=== PATIENT | female | born 1955 | race Caucasian/White ===

== ENCOUNTER → 2018-05-10 15:48 | Outpatient (CLI) | payer OTHER, SELFPAY ==
[2018-05-10 16:58] LABS: Absolute Lymphocyte Count 1.47 X10^3/ul (0.83-4.51); Absolute Neutrophil Count 3.6 X10^3/uL (2.0-7.7); Basophil# 0.02 X10^3/uL; Basophil% 0.4 % (0-1); Eosinophil# 0.15 X10^3/uL; Eosinophils% 2.7 % (0-5); Hematocrit 39.5 % (37-47); Hemoglobin 13.3 g/dl (12.0-15.0); Lymphocyte # 1.47 X10^3/ul (4.0); Lymphocyte % 26.2 % (19-41); Mean Corp Hgb Conc 33.7 g/gl (32-36); Mean Corpuscular Hgb 30.4 pg (27.0-32.0); Mean Corpuscular Volume 90.2 fL (81-99); Monocyte# 0.41 X10^3/uL; Monocyte% 7.3 % (0-10); Neutrophil # 3.56 X10^3/uL (2.7-7.7); Neutrophil % 63.4 % (47-70); Platelet Count 225 K/mm3 (150-450); RBC Distribution Width CV 12.9 % (11.6-14.6); RBC Distribution Width SD 42.3 fl (35.1-43.9); Red Blood Count 4.38 M/mm3 (4.2-5.4); White Blood Count 5.6 K/mm3 (4.4-11.0)
[2018-05-10 17:05] LABS: POSITIVE COUNT NO; POSITIVE DIFFERENTIAL NO; POSITIVE MORPHOLOGY NO
[2018-05-10 17:27] LABS: Erythrocyte Sedimentation Rate 6 mm/hr (0-30)
[2018-05-10 17:33] LABS: Hemoglobin A1c 5.9 % (4.2-6.3)
[2018-05-10 17:36] LABS: Vitamin D,25 Hydroxy 29.9 ng/mL (29.95-100.01)
[2018-05-10 17:43] LABS: ALB/GLOB Ratio 1.3 RATIO (0.9-2.4); AST(SGOT) 10 U/L (15-37); Alanine Aminotransfer ALT/SGPT 23 U/L (13-56); Albumin, Serum 3.7 g/dL (3.2-5.0); Alkaline Phosphatase 118 U/L (45-117); Anion Gap 10 (5-15); BUN 15 mg/dL (7-18); BUN/Creat Ratio 23.7 RATIO (10-20); CRP < 2.90 mg/L (0.0-3.0); Calcium,Total 8.8 mg/dL (8.5-10.1); Chloride 106 mmol/L (98-107); Creatinine, Serum 0.63 mg/dL (0.55-1.02); EST Glomerular Filtration Rate 101 mL/min (>60); Est Glom Filt Rate - Afr Amer 123 mL/min (>60); Globulin 2.8 g/dL (2.2-4.2); Glucose 100 mg/dL (74-106); Protein, Total 6.5 g/dL (6.4-8.2); Rheumatoid Factor < 10.0 IU/mL (<15); Sodium Level 141 mmol/L (136-145); T4 Free Direct 0.96 ng/dL (0.76-1.46); Thyroid Stim Hormone (TSH) 2.56 uIU/mL (0.358-3.74)
[2018-05-13 13:10] LABS: Anti-Centromere B Ab <0.2 AI (0.0-0.9); Anti-Chromatin <0.2 AI (0.0-0.9); Anti-Jo <0.2 AI (0.0-0.9); Anti-Scleroderma-70 AB <0.2 AI (0.0-0.9); Anti-ribosomal P Antibodies <0.2 AI (0.0-0.9); RNP Ab <0.2 AI (0.0-0.9); SJOGREN'S Anti-SS-A test < 0.2 AI (0.0-0.9); SJOGREN'S Anti-SS-B test < 0.2 AI (0.0-0.9); Smith Ab <0.2 AI (0.0-0.9); Smith/RNP Ab <0.2 AI (0.0-0.9)
[2018-05-13 13:37] LABS: Anti-dsDNA Ab 1 IU/mL (0-9)
[2018-05-13 13:41] LABS: CCP IgG Antibodies 6 units (0-19)
== END ==
PROVIDERS: Family Provider Family Medicine; PCP Family Medicine; Visit Provider Family Medicine
DX: R73.01 Impaired fasting glucose (principal); E03.9 Hypothyroidism, unspecified; M06.4 Inflammatory polyarthropathy; G25.0 Essential tremor
CPT/HCPCS: 36415; 80053; 82306; 83036; 84439; 84443; 85025; 85652; 86038; 86140; 86200; 86225; 86235; 86431

== ENCOUNTER → 2018-06-14 14:19 | Outpatient (CLI) | payer OTHER, SELFPAY ==
--- NOTE | 2018-06-14 14:22 | BI_ITS ---
MAMMOGRAPHY - BILATERAL SCREENING REASON FOR EXAM: Female, 63 years old. Routine annual screening examination. PERTINENT HISTORY: Sister with breast cancer. Mother with breast cancer. Grandmother with breast cancer. TECHNIQUE: Digital bilateral breast yessy (3D mammographic acquisition) in the CC and MLO projections. 2-D mediolateral oblique (MLO) and craniocaudad (CC) views of both breasts were obtained. CAD: Full Field Digital Mammography with Computer Added Detection was performed. COMPARISON: Comparison is made with prior study dated January 26, 2017 and January 30, 2016. FINDINGS: Breast Composition: There are scattered areas of fibroglandular density. There are no dominant masses or suspicious calcifications. Stable 6.5 mm x 6.5 mm well-defined nodule in the mid outer portion of the right breast. This is unchanged. Prior ultrasound dated February 03, 2017 demonstrated this to be a simple cyst. No other significant abnormalities are identified. There has been no significant change since the prior study. BI/SCREENING MAMM (CAD), BILAT IMPRESSION: Stable bilateral screening mammogram. Yearly follow-up mammogram recommended. (A) ASSESSMENT CATEGORY: BIRADS Category 2: Benign. A letter regarding these results will be sent to the patient by the facility within 30 days. Approximately 10% of breast cancers are not detected by mammography. A normal mammogram should not delay biopsy of a clinically suspicious abnormality. [id number] Electronically Signed: Tashi Sousa MD at 15:52 EST Tel [phone], Service support ,
== END ==
PROVIDERS: Family Provider Family Medicine; PCP Family Medicine; Referring Provider Family Medicine; Visit Provider Family Medicine
DX: Z12.31 Encounter for screening mammogram for malignant neoplasm of breast (principal)
CPT/HCPCS: 77063; 77067

== ENCOUNTER → 2019-06-21 15:43 | Outpatient (CLI) | payer OTHER, SELFPAY ==
--- NOTE | 2019-06-21 15:46 | BI_ITS ---
MAMMOGRAPHY - BILATERAL SCREENING REASON FOR EXAM: Female, 64 years old. Routine annual screening examination. PERTINENT HISTORY: Sister with breast cancer. Mother with breast cancer. Grandmother with breast cancer. TECHNIQUE: Digital bilateral breast williams (3D mammographic acquisition) in the CC and MLO projections. 2-D mediolateral oblique (MLO) and craniocaudad (CC) views of both breasts were obtained. CAD: Full Field Digital Mammography with Computer Added Detection was performed. COMPARISON: Comparison is made with prior study dated June 14, 2018 and January 26, 2017 FINDINGS: Breast Composition: There are scattered areas of fibroglandular density. There are no dominant masses or suspicious calcifications. There is a 4.7 mm x 5.8 mm mm well-defined nodule in the mid outer portion of the right breast. This has decreased in size as compared to prior study. Prior sonogram of the breast demonstrated this to be a cyst. Stable benign-appearing small bilateral axillary lymph nodes. No other significant abnormalities are identified. There has been no significant change since the prior study. BI/SCREEN MAMM (CAD) W/WILLIAMS BILAT IMPRESSION: Stable bilateral screening mammogram. Yearly follow-up mammogram recommended. (A) ASSESSMENT CATEGORY: BIRADS Category 2: Benign. A letter regarding these results will be sent to the patient by the facility within 30 days. Approximately 10% of breast cancers are not detected by mammography. A normal mammogram should not delay biopsy of a clinically suspicious abnormality. [id number] Electronically Signed: Tashi Sousa, at 8:15 EST , Service support ,
== END ==
PROVIDERS: Family Provider Family Medicine; PCP Family Medicine; Referring Provider Family Medicine; Visit Provider Family Medicine
DX: Z12.31 Encounter for screening mammogram for malignant neoplasm of breast (principal)
CPT/HCPCS: 77063; 77067

== ENCOUNTER 2020-08-20 07:51 | Inpatient (IN) | payer OTHER, SELFPAY ==
[2020-08-20] VITALS (10 sets, daily range): BP systolic 115–142; BP diastolic 65–90; PULSE 70–102; RESP 11–18; TEMP 36.6–37.2; O2SAT 86–99; BMI 35.0; BMI 32.9
--- NOTE | 2020-08-20 08:03 | RAD_ITS ---
STUDY: X-RAY CHEST REASON FOR EXAM: Female, 65 years old. Rapid positive covid this am at urgent care. general weakness, diarrhea x1 week, body aches, cough, sob with exertion. sx x1 week TECHNIQUE: Single AP portable view of the chest. COMPARISON: None. FINDINGS: EKG electrodes are seen. There is evidence of a focal infiltrate in the posterior medial segment of the left lower lobe. Mild increased markings are seen in the peripheral aspect of the right upper lobe. There is no demonstrated pleural abnormality. Normal size heart. Normal mediastinum and michael. Normal visualized pulmonary arteries. There is atherosclerotic calcification of the aortic arch with tortuosity. Normal visualized thoracic spine. Normal visualized ribs, clavicles, and shoulders. There is no demonstrated abnormality of the visualized soft tissue structures of the upper abdomen. RAD/Chest 1 View (Portable) IMPRESSION: Focal left lower lobe infiltrate as well as a faint infiltrate in the peripheral lateral aspect of the right upper lobe adjacent to the right minor fissure. Electronically Signed: Tashi Sousa MD at 8:55 EST , Service support ,
[2020-08-20 08:07] LABS: Bacteria 0 SEEN /hpf (None Seen); Mucous, Urine 0 SEEN /hpf (<or=2+); White Blood Cells 0 SEEN /hpf (0-5)
--- NOTE | 2020-08-20 08:07 | ED.VIS.GEN ---
History of Present Illness Chief Complaint: General Illness Informant: Patient Onset: Days Context: Gradual Onset Timing: Continuous Current Severity: Moderate Maximum Severity: Moderate Narrative: Patient is a 65-year-old female with medical history significant for hypertension diabetes who presents to the emergency department with generalized malaise. Patient states for about the past week, she has been having chills, myalgias, and scant cough. She states she is also had diarrhea and has been feeling generally weak. She went to urgent care this morning. She had a positive Covid test. She does admit to some mild shortness of breath with exertion. She denies chest pain. She denies orthopnea. She has had some lack of appetite. She has no history of immunosuppression. She has no history of underlying lung disease. Prior similar symptoms: No Recent Illness/Hospitalization: No Past Medical History - Allergies and Home Meds Allergies/Adverse Reactions: Allergies codeine Allergy (Unknown, Verified 08/20/20 07:54) [facility] Primary Care Physician: Kade Baca MD [NON-STAFF] - Prior records reviewed: Yes Past Medical History: - - Hypertension, diabetes Surgical History: noncontributory Review of Systems General: Reports: Chills, Malaise. Denies: Fever, Sweats Eyes: Denies: Visual changes - bilaterally, Diplopia ENT: Denies: Rhinorrhea, Sore throat Cardiovascular: Denies: Chest pain, Palpitations Respiratory: Reports: Cough. Denies: Dyspnea, Dyspnea on exertion Gastrointestinal: Reports: Nausea, Diarrhea. Denies: Abdominal pain, Vomiting, Melena, Hematochezia Genitourinary: Denies: Dysuria, Hematuria, Frequency Musculoskeletal: Reports: Myalgias. Denies: Back pain, Extremity Pain Skin: Denies: Rash, Wounds Neurological: Denies: Headache, Weakness, Numbness Physical Exam Vital Signs/Narrative: Vital Signs Temp Pulse Resp BP Pulse Ox 08/20/20 07:51 98.9 F 102 H 16 142/90 H 96 Inital Vital Signs reviewed: Yes General: Well nourished, Well developed, No Acute Distress Head: Normocephalic, Atraumatic Eyes: Perrl, EOMI ENT: Moist mucous membranes, No rhinorrhea Neck: Supple, Nontender Cardiovascular: Regular rate, Regular rhythm, No murmurs Respiratory: No distress, CTA bilaterally, Chest nontender Abdomen: Soft, Nontender, Nondistended, Normal bowel sounds Back: Nontender, Normal Inspection Extremities: Nontender, No edema Skin: Normal color, No rash Neurological: Alert, Oriented x3, Cranial nerves II-XII grossly intact, Normal Strength, Normal Sensation Psychological: Normal affect, Normal Mood Diagnostic/Tx/Re-eval Clinical Impression(s) from Imaging Studies Chest X-Ray 08/20/20 08:03 IMPRESSION: Focal left lower lobe infiltrate as well as a faint infiltrate in the peripheral lateral aspect of the right upper lobe adjacent to the right minor fissure. Electronically Signed: Tashi Sousa MD at 8:55 EST , Service support , Abnormal Lab Results 08/20/20 08/20/20 08/20/20 08:00 08:20 08:20 WBC 3.7 L RBC 4.49 Hgb 13.5 Hct 41.1 MCV 91.5 MCH 30.1 MCHC 32.8 RDW Std Deviation 41.0 RDW Coeff of Karly 12.2 Plt Count 177 MPV 9.7 Immature Gran % (Auto) 0.500 Neut % (Auto) 70.6 H Lymph % (Auto) 19.7 [place] % (Auto) 8.6 Eos % (Auto) 0.3 Baso % (Auto) 0.3 Absolute Neuts (auto) 2.6 Absolute Lymphs (auto) 0.73 L Nucleated RBC % 0 Sodium 138 Potassium 4.8 Chloride 107 Carbon Dioxide 26.0 Anion Gap 5 BUN 11 Creatinine 0.76 Estim Creat Clear Calc 59.15 Est GFR (MDRD) Af Amer 98 Est GFR (MDRD) Non-Af 81 BUN/Creatinine Ratio 14.5 Glucose 114 H Calcium 8.5 Total Bilirubin 0.40 AST 12 L ALT 18 Alkaline Phosphatase 113 Total Protein 6.7 Albumin 3.7 Globulin 3.0 Albumin/Globulin Ratio 1.2 Urine Color Yellow Urine Clarity Sl. Cloudy Urine pH 6.0 Ur Specific [place] 1.015 Urine Protein Negative Urine Glucose (UA) Normal Urine Ketones Negative Urine Occult Blood 10 H Urine Nitrite Negative Urine Bilirubin Negative Urine Urobilinogen Normal Ur Leukocyte Esterase Negative Urine RBC 0-5 SEEN Urine WBC 0 SEEN Ur Squamous Epith Cells 0-5 SEEN Urine Bacteria 0 SEEN Urine Mucus 0 SEEN - Rhythm Strip Rhythm Strip: Sinus Rhythm Rate: 80 Ectopy: None - Medical Decision Making Abnormal Lab Results 08/20/20 08/20/20 08/20/20 08:00 08:20 08:20 WBC 3.7 L RBC 4.49 Hgb 13.5 Hct 41.1 MCV 91.5 MCH 30.1 MCHC 32.8 RDW Std Deviation 41.0 RDW Coeff of Karly 12.2 Plt Count 177 MPV 9.7 Immature Gran % (Auto) 0.500 Neut % (Auto) 70.6 H Lymph % (Auto) 19.7 [place] % (Auto) 8.6 Eos % (Auto) 0.3 Baso % (Auto) 0.3 Absolute Neuts (auto) 2.6 Absolute Lymphs (auto) 0.73 L Nucleated RBC % 0 Sodium 138 Potassium 4.8 Chloride 107 Carbon Dioxide 26.0 Anion Gap 5 BUN 11 Creatinine 0.76 Estim Creat Clear Calc 59.15 Est GFR (MDRD) Af Amer 98 Est GFR (MDRD) Non-Af 81 BUN/Creatinine Ratio 14.5 Glucose 114 H Calcium 8.5 Total Bilirubin 0.40 AST 12 L ALT 18 Alkaline Phosphatase 113 Total Protein 6.7 Albumin 3.7 Globulin 3.0 Albumin/Globulin Ratio 1.2 Urine Color Yellow Urine Clarity Sl. Cloudy Urine pH 6.0 Ur Specific [place] 1.015 Urine Protein Negative Urine Glucose (UA) Normal Urine Ketones Negative Urine Occult Blood 10 H Urine Nitrite Negative Urine Bilirubin Negative Urine Urobilinogen Normal Ur Leukocyte Esterase Negative Urine RBC 0-5 SEEN Urine WBC 0 SEEN Ur Squamous Epith Cells 0-5 SEEN Urine Bacteria 0 SEEN Urine Mucus 0 SEEN The patient presents Covid positive for generalized fatigue and tachycardia. She is had a scant cough. On arrival, the patient's oxygen saturation was 96% on room air. Metabolic work-up was pursued. She does not have significant evidence of dehydration. Her chest x-ray is consistent with Covid. Patient was given gentle fluids and Tylenol. However, in the room, she began to get more hypoxic. At one point, without exertion she was 84% on room air. Given the patient's significant oxygen requirement, I do feel that she would benefit from admission. The patient was discussed with the hospitalist. Impression 1. COVID-19 2. Hypoxia ED Disposition - Plan for ED Patient: Referrals: Kade Baca MD [NON-STAFF] -
[2020-08-20 08:16] LABS: Color, Urine Yellow (Yellow); Glucose, Dipstick Normal (Normal); Ketone-Dipstick Negative (Negative); Leukocyte Esterase-Dipstick Negative /ul (Negative); Nitrite-Dipstick Negative (Negative); Occult Blood-Urine 10 /ul (Negative); Protein-Dipstick Negative (Negative); Specific Gravity, Urine 1.015 (1.002-1.030); Urine Bilirubin Dipstick Negative (Negative); Urine Clarity Sl. Cloudy (Clear); Urine Urobilinogen Normal (Normal)
[2020-08-20 08:26] LABS: Red Blood Cells-Urine 0-5 SEEN /hpf (0-5); Squamous Epithelial Cells - UA 0-5 SEEN /hpf (5-10)
[2020-08-20] MEDS: Ondansetron 4 MG/2 ML Vial IV (08:33)
[2020-08-20] MEDS: Acetaminophen 500 MG Tablet 1000 MG PO (08:33)
[2020-08-20 08:47] LABS: Absolute Lymphocyte Count 0.73 X10^3/uL (0.83-4.51); Absolute Neutrophil Count 2.6 X10^3/uL (2.0-7.7); Basophil# 0.01 X10^3/uL; Basophil% 0.3 % (0-1); Eosinophil# 0.01 X10^3/uL; Eosinophils% 0.3 % (0-5); Hematocrit 41.1 % (37-47); Hemoglobin 13.5 g/dL (12.0-15.0); Lymphocyte # 0.73 X10^3/ul (4.0); Lymphocyte % 19.7 % (19-41); Mean Corp Hgb Conc 32.8 g/dL (32-36); Mean Corpuscular Hgb 30.1 pg (27.0-32.0); Mean Corpuscular Volume 91.5 fL (81-99); Mean Platelet Vol. 9.7 fl (6.2-12.0); Monocyte# 0.32 X10^3/uL; Monocyte% 8.6 % (0-10); NRBC Flagged by Analyzer 0 % (0-5); Neutrophil # 2.61 X10^3/uL (2.7-7.7); Neutrophil % 70.6 % (47-70); Platelet Count 177 K/mm3 (150-450); RBC Distribution Width CV 12.2 % (11.6-14.6); Red Blood Count 4.49 M/mm3 (4.2-5.4); White Blood Count 3.7 K/mm3 (4.4-11.0)
[2020-08-20 08:54] LABS: ALB/GLOB Ratio 1.2 RATIO (0.9-2.4); AST(SGOT) 12 U/L (15-37); Alanine Aminotransfer ALT/SGPT 18 U/L (13-56); Albumin, Serum 3.7 g/dL (3.2-5.0); Alkaline Phosphatase 113 U/L (45-117); Anion Gap 5 (5-15); BUN 11 mg/dL (7-18); BUN/Creat Ratio 14.5 RATIO (10-20); Calcium,Total 8.5 mg/dL (8.5-10.1); Chloride 107 mmol/L (98-107); Creatinine, Serum 0.76 mg/dL (0.55-1.02); EST Glomerular Filtration Rate 81 mL/min (>60); Est Glom Filt Rate - Afr Amer 98 mL/min (>60); Estimated Creatinine Clearance 59.15 ml/min; Glucose 114 mg/dL (74-106); Potassium 4.8 mmol/L (3.5-5.1); Protein, Total 6.7 g/dL (6.4-8.2); Sodium Level 138 mmol/L (136-145)
[2020-08-20] MEDS: dexAMETHasone 4 MG/ML Vial 6 MG IV (09:23)
[2020-08-20] MEDS: 0.9% Normal Saline 1,000 ML 125 ML IV (09:23)
--- NOTE | 2020-08-20 12:00 | PCM.HP.STD ---
Problem List (1) Hypoxia Status: Acute (2) Pneumonia due to COVID-19 virus Status: Acute (3) Depression Status: Chronic (4) Hypothyroidism Status: Chronic (5) Hypertension Status: Chronic (6) Type 2 diabetes mellitus Status: Chronic History of Present Illness Date of Admission: 08/20/20 Chief Complaint: Body aches and pains, cough. The patient is a 65 year old F with past medical history as mentioned above was referred to the emergency room from the urgent care because she tested positive for COVID-19 antigen after she complained of body aches and pains, cough and shortness of breath. Her symptoms started 1 week ago after her came back home and he started coughing, she started coughing after him by 1 day, initially was mild dry cough, has been continuous, started to have body aches and pains all over the next couple of days and then she started having shortness of breath. She reported exertional shortness of breath mainly on moderate exertion, relieved better with rest, continued to have cough with no sputum as well as body aches, malaise and weakness. She denied fever or chills. She denied chest pain, palpitation, dizziness or lightheadedness. In the emergency department, she was afebrile, slightly tachycardic, initial pulse ox was 96% on room air and then her pulse ox dropped down to 86% on room air. Her routine blood work was remarkable for mild leukopenia and lymphopenia, otherwise unremarkable. LFT was normal. Urinalysis showed no acute infection. Chest x-ray revealed focal left lower lobe as well as right upper lobe infiltrate. Reportedly, COVID-19 antigen was positive at the urgent care. She is being admitted for acute bilateral COVID-19 pneumonia with hypoxia. Past Medical History Past Medical History (Chronic Problems): Chronic Problems (Last Reviewed 08/20/20 @ 07:05 by Tashia Vasquez) Depression (Chronic) Hypothyroidism (Chronic) Hypertension (Chronic) Type 2 diabetes mellitus (Chronic) Allergies codeine Allergy (Unknown, Verified 08/20/20 11:50) makes me real sick Home Medications: Ambulatory Orders Medication Instructions Recorded Duloxetine Hcl [Cymbalta] PO DAILY 08/20/20 Levothyroxine [Synthroid] 100 mcg PO DAILY 08/20/20 Lisinopril/Hydrochlorothiazide 20 mg PO DAILY 08/20/20 [Lisinopril-Hctz 20-12.5 mg Tab] Zolpidem Tartrate [Ambien] PO QHS 08/20/20 Surgical History: tonsillectomy, - - Foot surgery, tubal ligation. Psychiatric History: Depression [employer] History: No pertinent [employer] history Lives: Spouse/ Significant Other Smoking Status: Former smoker Alcohol: Occasional Drugs: None - *Family History Maternal History Items: No pertinent history Paternal History Items: No pertinent history Review of Systems Constitutional: Reports: Malaise, Weakness. Denies: Anorexia, Chills, Fever Eyes: Denies: Blurred vision, Conjunctivae Inflammation, Double vision, Redness HEENT: Denies: Difficulty Hearing, Ear Pain, Eye Pain, Nasal Congestion, Sore Throat Cardiovascular: Denies: Chest Pain, Chest Pressure, Chest Tightness, Edema, Palpitations, Syncope Respiratory: Reports: Cough, Shortness of breath upon exertion. Denies: Pleuritic Pain, Sputum production, Wheezing Gastrointestinal: Denies: Abdominal Pain, Constipation, Diarrhea, Nausea, Vomiting Genitourinary: Denies: Dysuria, Frequency Musculoskeletal: Reports: Muscle pain. Denies: Arm Pain, Back Pain, Foot Pain Skin: Denies: Dryness, Rash Neurological: Denies: Balance problems, Double vision, Change in Speech, Headaches, Incoordination Psychiatric: Reports: Depression. Denies: Anxiety Endocrine: Denies: Change in Body Habitus, Polydipsia, Polyuria VTE Information - Inpt Only VTE Present on Admission: No VTE Mechan Device Prophylaxis: None VTE Pharm Prophylaxis ordered?: Yes Patient Problems: Active and Suspected Problems (Last Reviewed 08/20/20 @ 07:05 by Tashia Vasquez) Hypoxia (Acute) Pneumonia due to COVID-19 virus (Acute) - Physical Exam Vitals/I&O's: Vital Signs Temp Pulse Resp BP Pulse Ox 98.8 F 84 18 120/74 96 08/20/20 11:09 08/20/20 11:09 08/20/20 11:09 08/20/20 11:09 08/20/20 11:09 Oxygen Flow Rate (L/min) 2 Oxygen Delivery Method Nasal Cannula Weight: 191 lb 9.307 oz Body Mass Index (BMI) 35.0 General: Alert, Oriented x3, Cooperative, No apparent distress, - - Anxious, tearful. HEENT: Atraumatic, PERRLA, EOMI, Normocephalic Oral: Moist Mucosa, No Gingival or Mucosal Lesions/ Ulcerations Neck: Supple, No JVD, Negative Carotid Bruits, Trachea Midline, Thyroid Normal Size and Texture Lungs: Clear to auscultation, Normal air movement, No rhonchi, No wheeze, No rales, Diminished Cardiovascular: Regular rate, Regular Rhythm, Normal S1, Normal S2, PMI Normal Abdomen: Bowel Sounds Present, Soft, Non Tender, Non-Distended, No Hepato-splenomegaly Extremities: No clubbing, No cyanosis, No edema Skin: No rashes, No breakdown Lymphatic: No Cervical, Supraclavicular, or Inguinal Adenopathy Neurological: Cranial nerves II-XII grossly intact, Motor Exam 5/5 strength throughout Psych/Mental Status: Normal Affect, Appropriate, Alert and oriented to time, place, person, mood and affect Laboratory Results 08/20/20 08:00: Urine Color Yellow, Urine Clarity Sl. Cloudy, Urine pH 6.0, Ur Specific [place] 1.015, Urine Protein Negative, Urine Glucose (UA) Normal, Urine Ketones Negative, Urine Occult Blood 10 H, Urine Nitrite Negative, Urine Bilirubin Negative, Urine Urobilinogen Normal, Ur Leukocyte Esterase Negative, Urine RBC 0-5 SEEN, Urine WBC 0 SEEN, Ur Squamous Epith Cells 0-5 SEEN, Urine Bacteria 0 SEEN, Urine Mucus 0 SEEN 08/20/20 08:20: WBC 3.7 L, RBC 4.49, Hgb 13.5, Hct 41.1, MCV 91.5, MCH 30.1, MCHC 32.8, RDW Std Deviation 41.0, RDW Coeff of Karly 12.2, Plt Count 177, MPV 9.7, Immature Gran % (Auto) 0.500, Neut % (Auto) 70.6 H, Lymph % (Auto) 19.7, [place] % (Auto) 8.6, Eos % (Auto) 0.3, Baso % (Auto) 0.3, Absolute Neuts (auto) 2.6, Absolute Lymphs (auto) 0.73 L, Nucleated RBC % 0 08/20/20 08:20: Sodium 138, Potassium 4.8, Chloride 107, Carbon Dioxide 26.0, Anion Gap 5, BUN 11, Creatinine 0.76, Estim Creat Clear Calc 59.15, Est GFR (MDRD) Af Amer 98, Est GFR (MDRD) Non-Af 81, BUN/Creatinine Ratio 14.5, Glucose 114 H, Calcium 8.5, Total Bilirubin 0.40, AST 12 L, ALT 18, Alkaline Phosphatase 113, Total Protein 6.7, Albumin 3.7, Globulin 3.0, Albumin/Globulin Ratio 1.2 Clinical Impression(s) from Imaging Studies Chest X-Ray 08/20/20 08:03 IMPRESSION: Focal left lower lobe infiltrate as well as a faint infiltrate in the peripheral lateral aspect of the right upper lobe adjacent to the right minor fissure. Electronically Signed: Tashi Sousa MD at 8:55 EST , Service support , Current Medications Acetaminophen (Acetaminophen 325 Mg Tablet) 650 mg PO Q6H PRN PRN PRN Reason: Pain Score 1-10/Temp > 100.7 F Dexamethasone Sodium Phosphate (Dexamethasone 10 Mg/Ml Vial) 6 mg IV DAILY [facility] Enoxaparin Sodium (Enoxaparin 30 Mg/0.3 Ml Syringe) 30 mg SC BID ANNETTE Hydrochlorothiazide (Hydrochlorothiazide 12.5mg) 12.5 mg PO DAILY ANNETTE Remdesivir 200 mg/ Sodium (Chloride) 250 mls @ 125 mls/hr IV X1 ONE Stop: 08/20/20 14:59 Remdesivir 100 mg/ Sodium (Chloride) 250 mls @ 125 mls/hr IV DAILY ANNETTE Stop: 08/24/20 11:59 Sodium Chloride () 250 mls @ 15 mls/hr IV .[id number] PRN PRN Reason: Saline Flush Levothyroxine Sodium (Levothyroxine 100 Mcg Tablet) 100 mcg PO DAILY ANNETTE Lisinopril (Lisinopril 20 Mg Tablet) 20 mg PO DAILY ANNETTE Ondansetron HCl (Ondansetron 4 Mg/2 Ml Vial) 4 mg IV Q8H PRN PRN PRN Reason: NAUSEA/VOMITING Senna/Docusate Sodium (Senna/Docusate Sodium 1 Tablet) 2 tablet PO BID PRN PRN PRN Reason: Constipation Sodium Chloride (0.9% Saline Lock 10 Ml Syringe) 10 - 40 ml IV UD PRN PRN Reason: SALINE FLUSH Assessment/Plan All Active Problems (Last Reviewed 08/20/20 @ 07:05 by Tashia Vasquez) Hypoxia (Acute) Pneumonia due to COVID-19 virus (Acute) This is a 65 years old female patient was referred from the urgent care to ED because she was tested positive for COVID-19 antigen after she complained of 1 week history of cough, malaise, body aches and shortness of breath and she was found to have bilateral infiltrates on chest x-ray, being admitted for acute bilateral COVID-19 pneumonia with hypoxia. #1 acute bilateral COVID-19 pneumonia/hypoxia: Chest x-ray reviewed. Patient tested positive for COVID-19 antigen as outpatient. Currently, she is on 2 L of oxygen, other vital signs are stable. Plan: Admit to [facility] COVID-19 floor, isolation precautions, check BMP, CPK, D-dimer, lactic acid, procalcitonin, troponin, PT and INR, start IV Decadron and IV remdesivir, EKG, oxygen by nasal cannula, infectious disease consult, repeat CBC and CMP tomorrow morning, PT OT evaluation and treatment. #2 hypertension: Blood pressure stable, continue lisinopril/HCTZ. #3 hypothyroidism: Stable, continue levothyroxine. #4 type 2 diabetes mellitus: Currently, she is not on any treatment. She used to be on Metformin. Plan: Accu-Cheks, sliding scale, ADA diet. #5 depression: Stable, continue Cymbalta. #6 DVT prophylaxis: Subcu Lovenox twice daily. This note was generated with ReplySend dictation software. It may contain incorrect words, spelling, and punctuation that were not noted in checking the note before signing. Inpatient E&M: [id number] Init Hosp L3
--- NOTE | 2020-08-20 12:10 | EKG12_ITS ---
Test Reason : ADMITT Blood Pressure : / mmHG Vent. Rate : 077 BPM Atrial Rate : 077 BPM P-R Int : 168 ms QRS Dur : 080 ms QT Int : 398 ms P-R-T Axes : 020 -28 014 degrees QTc Int : 450 ms Normal sinus rhythm Normal ECG Confirmed by SHAHRAM BRADY, IMANI ([id number]), legal editor MARIANO MONTAGUE ([id number]) on 08/23/2020 9:55:09 AM Referred By: SAMINA Confirmed By:IMANI OMALLEY MD
[2020-08-20 12:32] LABS: Prothrombin Time (Protime)PT. 12.7 SECONDS (11.7-14.9)
[2020-08-20 12:34] LABS: D-Dimer Quantitative (DVT/PE) 0.41 FEU/ug/m (0.27-0.49)
[2020-08-20 12:41] LABS: BNP,B-Type NATRIURETIC PEPTIDE 14.8 pg/mL (0-100)
[2020-08-20 12:46] LABS: CPK Total, Creatine Kinase 44 U/L (26-192)
[2020-08-20 12:48] LABS: Lactic Acid 1.1 mmol/L (0.4-1.9)
[2020-08-20 12:50] LABS: Procalcitonin 0.05 ng/mL (0.00-0.09)
--- NOTE | 2020-08-20 12:57 | PCS.PANDOC ---
PANDEMIC DOCUMENTATION INITIATED: Date: 08/20/2020 Time: 1129
[2020-08-20] MEDS: Enoxaparin 30 MG/0.3 ML Syringe SC ×2 (14:25→22:35)
--- NOTE | 2020-08-20 14:29 | CASEMGMT ---
RN CM Assessment Note Introduced role of CM to patient. Patient was admitted today and is not feeling well. She requested CM call back tomorrow. Assessment deferred for today. Ida NYEN RN ACM
[2020-08-20 16:56] LABS: Bedside Glucose 178 mg/dL (70-110)
[2020-08-20] MEDS: Insulin Lispro 100 UNIT/ML INSULN.PEN SC (16:57)
[2020-08-20] MEDS: Acetaminophen 325 MG Tablet 650 MG PO (22:35)
[2020-08-20] MEDS: Zolpidem Tartrate 5 MG Tablet PO (22:36)
[2020-08-21] VITALS (14 sets, daily range): BP systolic 122–157; BP diastolic 63–102; PULSE 54–87; RESP 14–18; TEMP 36.2–36.4; O2SAT 94–98
[2020-08-21 00:46] LABS: Bedside Glucose 121 mg/dL (70-110)
[2020-08-21 05:19] LABS: Absolute Lymphocyte Count 0.95 X10^3/uL (0.83-4.51); Absolute Neutrophil Count 1.2 X10^3/uL (2.0-7.7); Basophil# 0.01 X10^3/uL; Basophil% 0.4 % (0-1); Hematocrit 37.7 % (37-47); Hemoglobin 12.8 g/dL (12.0-15.0); Lymphocyte # 0.95 X10^3/ul (4.0); Lymphocyte % 38.8 % (19-41); Mean Corpuscular Hgb 30.2 pg (27.0-32.0); Mean Corpuscular Volume 88.9 fL (81-99); Mean Platelet Vol. 9.6 fl (6.2-12.0); Monocyte# 0.34 X10^3/uL; Monocyte% 13.9 % (0-10); NRBC Flagged by Analyzer 0 % (0-5); Neutrophil # 1.15 X10^3/uL (2.7-7.7); Neutrophil % 46.9 % (47-70); Platelet Count 177 K/mm3 (150-450); RBC Distribution Width SD 38.9 fl (35.1-43.9); Red Blood Count 4.24 M/mm3 (4.2-5.4); White Blood Count 2.5 K/mm3 (4.4-11.0)
[2020-08-21 05:36] LABS: ALB/GLOB Ratio 1.1 RATIO (0.9-2.4); AST(SGOT) 13 U/L (15-37); Alanine Aminotransfer ALT/SGPT 17 U/L (13-56); Albumin, Serum 3.2 g/dL (3.2-5.0); Alkaline Phosphatase 100 U/L (45-117); Anion Gap 7 (5-15); BUN 13 mg/dL (7-18); BUN/Creat Ratio 21.6 RATIO (10-20); Calcium,Total 8.1 mg/dL (8.5-10.1); Chloride 109 mmol/L (98-107); EST Glomerular Filtration Rate 107 mL/min (>60); Est Glom Filt Rate - Afr Amer 129 mL/min (>60); Estimated Creatinine Clearance 74.92 ml/min; Glucose 106 mg/dL (74-106); Potassium 3.6 mmol/L (3.5-5.1); Protein, Total 6.2 g/dL (6.4-8.2); Sodium Level 140 mmol/L (136-145)
[2020-08-21] MEDS: dexAMETHasone 10 MG/ML Vial 6 MG IV (08:56)
[2020-08-21] MEDS: hydroCHLOROthiazide 12.5mg 12.5 MG PO (08:56)
[2020-08-21] MEDS: Levothyroxine 100 MCG Tablet PO (08:56)
[2020-08-21] MEDS: Lisinopril 20 MG Tablet PO (08:57)
[2020-08-21] MEDS: Enoxaparin 30 MG/0.3 ML Syringe SC ×2 (08:57→20:47)
--- NOTE | 2020-08-21 10:12 | PN_ITS ---
Patient Problems: Active and Suspected Problems (Last Reviewed 08/20/20 @ 07:05 by Tashia Vasquez) Hypoxia (Acute) Pneumonia due to COVID-19 virus (Acute) Subjective: Chief complaint: Follow-up after admission for acute bilateral COVID-19 pneumonia and hypoxia. Patient seen and examined. No acute events overnight. Today, she is feeling little bit better, but no significant improvement. She states that she has been getting more short of breath upon walking to the bathroom. No other complaints. She has been afebrile, blood pressure and heart rate are stable, pulse ox is 96% on 2 L of oxygen. - Physical Exam Vitals/I&O's: Vital Signs Temp Pulse Resp BP Pulse Ox 97.6 F L 63 14 143/81 H 96 08/21/20 06:20 08/21/20 09:26 08/21/20 06:20 08/21/20 06:20 08/21/20 08:22 Oxygen Flow Rate (L/min) 2 Oxygen Delivery Method Room Air Weight: 191 lb 9.307 oz Body Mass Index (BMI) 35.0 Intake and Output for Last 24 Hours 08/19/20 08/20/20 08/21/20 23:59 23:59 23:59 Intake Total 1329.17 / 1329.17 400 / 400 Balance 1329.17 / 1329.17 400 / 400 General: Alert, Oriented x3, Cooperative, No apparent distress HEENT: Atraumatic, PERRLA, EOMI, Normocephalic Oral: Moist Mucosa, No Gingival or Mucosal Lesions/ Ulcerations Neck: Supple, No JVD, Negative Carotid Bruits, Trachea Midline, Thyroid Normal Size and Texture Lungs: Clear to auscultation, Normal air movement, No rhonchi, No wheeze, No rales, Diminished Cardiovascular: Regular rate, Regular Rhythm, Normal S1, Normal S2, PMI Normal Abdomen: Bowel Sounds Present, Soft, Non Tender, Non-Distended, No Hepato- splenomegaly Extremities: No clubbing, No cyanosis, No edema Skin: No rashes, No breakdown Lymphatic: No Cervical, Supraclavicular, or Inguinal Adenopathy Neurological: Cranial nerves II-XII grossly intact, Motor Exam 5/5 strength throughout Psych/Mental Status: Normal Affect, Appropriate, Alert and oriented to time, place, person, mood and affect Laboratory Results 08/20/20 12:10: PT 12.7, INR 1.0, D-Dimer Quant (PE/DVT) 0.41 08/20/20 12:10: Total Creatine Kinase 44, Troponin I < 0.015 08/20/20 12:10: Lactic Acid 1.1 08/20/20 12:10: B-Natriuretic Peptide 14.8 08/20/20 12:10: Procalcitonin 0.05 08/20/20 16:42: POC Glucose 178 H 08/20/20 22:34: POC Glucose 121 H 08/21/20 04:46: WBC 2.5 L, RBC 4.24, Hgb 12.8, Hct 37.7, MCV 88.9, MCH 30.2, MCHC 34.0, RDW Std Deviation 38.9, RDW Coeff of Karly 12.0, Plt Count 177, MPV 9.6, Immature Gran % (Auto) 0.000, Neut % (Auto) 46.9 L, Lymph % (Auto) 38.8, [place] % (Auto) 13.9 H, Eos % (Auto) 0.0, Baso % (Auto) 0.4, Absolute Neuts (auto) 1.2 L, Absolute Lymphs (auto) 0.95, Nucleated RBC % 0 08/21/20 04:46: Sodium 140, Potassium 3.6, Chloride 109 H, Carbon Dioxide 24.0, Anion Gap 7, BUN 13, Creatinine 0.60, Estim Creat Clear Calc 74.92, Est GFR (MDRD) Af Amer 129, Est GFR (MDRD) Non-Af 107, BUN/Creatinine Ratio 21.6 H, Gluc ose 106, Calcium 8.1 L, Total Bilirubin 0.40, AST 13 L, ALT 17, Alkaline Phosphatase 100, Total Protein 6.2 L, Albumin 3.2, Globulin 3.0, Albumin/Globulin Ratio 1.1 Current Medications Acetaminophen (Acetaminophen 325 Mg Tablet) 650 mg PO Q6H PRN PRN PRN Reason: Pain Score 1-10/Temp > 100.7 F Last Admin: 08/20/20 22:35 Dose: 650 mg Documented by: Albuterol Sulfate (Albuterol Sulfate 8 Gm Inhaler (60 Puffs)) 2 puff INHALATION Q4H PRN PRN PRN Reason: Shortness of breath, wheezing. Dexamethasone Sodium Phosphate (Dexamethasone 10 Mg/Ml Vial) 6 mg IV DAILY [facility] Last Admin: 08/21/20 08:56 Dose: 6 mg Documented by: Enoxaparin Sodium (Enoxaparin 30 Mg/0.3 Ml Syringe) 30 mg SC BID [facility] Last Admin: 08/21/20 08:57 Dose: 30 mg Documented by: Hydrochlorothiazide (Hydrochlorothiazide 12.5mg) 12.5 mg PO DAILY [facility] Last Admin: 08/21/20 08:56 Dose: 12.5 mg Documented by: Remdesivir 100 mg/ Sodium (Chloride) 250 mls @ 125 mls/hr IV DAILY [facility] Stop: 08/24/20 11:59 Sodium Chloride () 250 mls @ 15 mls/hr IV .[id number] PRN PRN Reason: Saline Flush Insulin Human Lispro (Insulin Lispro 100 Unit/Ml Insuln.Pen) 0 unit SC [facility]; Protocol Last Admin: 08/21/20 05:48 Dose: Not Given Documented by: Levothyroxine Sodium (Levothyroxine 100 Mcg Tablet) 100 mcg PO DAILY [facility] Last Admin: 08/21/20 08:56 Dose: 100 mcg Documented by: Lisinopril (Lisinopril 20 Mg Tablet) 20 mg PO DAILY [facility] Last Admin: 08/21/20 08:57 Dose: 20 mg Documented by: Ondansetron HCl (Ondansetron 4 Mg/2 Ml Vial) 4 mg IV Q8H PRN PRN PRN Reason: NAUSEA/VOMITING Senna/Docusate Sodium (Senna/Docusate Sodium 1 Tablet) 2 tablet PO BID PRN PRN PRN Reason: Constipation Sodium Chloride (0.9% Saline Lock 10 Ml Syringe) 10 - 40 ml IV UD PRN PRN Reason: SALINE FLUSH Zolpidem Tartrate (Zolpidem Tartrate 5 Mg Tablet) 5 mg PO QHS PRN PRN PRN Reason: INSOMNIA Last Admin: 08/20/20 22:36 Dose: 5 mg Documented by: Medical Necessity - Tobacco Use Smoking Status: Former smoker Assessment/Plan All Active Problems (Last Reviewed 08/20/20 @ 07:05 by Tashia Vasquez) Hypoxia (Acute) Pneumonia due to COVID-19 virus (Acute) This is a 65 years old female patient was referred from the urgent care to ED because she was tested positive for COVID-19 antigen after she complained of 1 week history of cough, malaise, body aches and shortness of breath and she was found to have bilateral infiltrates on chest x-ray, being admitted for acute bilateral COVID-19 pneumonia with hypoxia. #1 acute bilateral COVID-19 pneumonia/hypoxia: She is on IV Decadron, IV remdesivir and subcu p.o. twice daily. Chest x-ray reviewed. Patient tested positive for COVID-19 antigen as outpatient. She remains on 2 L of oxygen, minimal improvement. Repeat CBC and BMP was unremarkable. Infectious disease consulted. Plan to continue same treatment. #2 hypertension: Blood pressure stable, continue lisinopril/HCTZ. #3 hypothyroidism: Stable, continue levothyroxine. #4 type 2 diabetes mellitus: Blood sugar has been stable. She is on ADA diet, Accu-Cheks and sliding scale. Patient used to be on Metformin but currently, she does not take any diabetic medication at home. #5 depression: Stable, continue Cymbalta. #6 DVT prophylaxis: Subcu Lovenox twice daily. This note was generated with [employer] dictation software. It may contain incorrect words, spelling, and punctuation that were not noted in checking the note before signing. Inpatient E&M: 45933 Subs Hosp L2
--- NOTE | 2020-08-21 11:39 | NURSING ---
RN CM Assessment Introduced role of RN CM to patient.? Patient is alert, oriented and able?to participate in RN CM Assessment. ?Care providers, pharmacy, and demographics verified. Presentation: Body aches/Pains, Cough, SOB. UC- Tested Covid +. Admit Dx: COVID PNA, Hypoxia Re-Admit: No Barriers/Issues: Lives with her is quarantined too but denies s/s illness and has not been Covid tested. Patient states that they have had enough groceries but states has no support system should they require assistance with groceries. Has not/not able to use grocery delivery navigation. Pt able to quarantine in home from and able to sleep on couch on first fl if needed as bedroom is on [address]. PCP: Adrianne Sandoval Specialists: None Preferred Pharmacy: [facility] Insurance: [employer] Benefit:?Yes LNOK: Bijan Moss LW/HPOA: None. Patient declines offered information upon DC. Patient informed can complete advanced directives as an outpatient with social service dept at a later time if she chooses. Living Arrangements:? Lives in a 2SH with . Bedroom on [address]. 1 step to enter home through garage. ADL?s: Independent with ambulation and ADLs Transportation: Both patient and drive, will transport upon DC DME: None. Possible Home O2 needed upon DC- discussed in Factual with patient and prefers [employer] should she need oxygen. HHC: None. Patient states feeling better today and able to walk to bathroom, feels steady on her feet and does not think she will require PT at DC. SNF: None Goal: Home and does not think will have any needs other than the possible oxygen that this freelance writer discussed. Aware RNCM will continue to follow for any emerging needs. Denies any issues, questions or concerns with DC planning at this time. DC PLAN: Home with possible home O2 with [employer]. SKINNY Schwartz
[2020-08-21 13:30] LABS: Bedside Glucose 132 mg/dL (70-110)
[2020-08-21 16:36] LABS: Bedside Glucose 138 mg/dL (70-110)
--- NOTE | 2020-08-21 17:03 | CON.PCM_ITS ---
Problem List (1) Pneumonia due to COVID-19 virus Status: Acute Reason for Consult: covid Consulted by: Dr. Plummer History of Present Illness: The patient is a 65 year old F with sx starting about a week ago, mild cough, fatigue, generalized weakness. On 08/19, got much worse with fever, chills, dyspnea, headache, change in taste/smell. Came to ED, covid (+), admitted on dex, remdesivir, lovenox 30mg bid. Feeling better today. Full ROS performed and neg except as noted above. - Medical History Past Medical History (Chronic Problems): Chronic Problems (Last Reviewed 08/20/20 @ 07:05 by Tashia Vasquez) Depression (Chronic) Hypothyroidism (Chronic) Hypertension (Chronic) Type 2 diabetes mellitus (Chronic) Allergies/Adverse Reactions: Allergies codeine Allergy (Unknown, Verified 08/20/20 11:50) makes me real sick Home Medications: Ambulatory Orders Medication Instructions Recorded Duloxetine Hcl [Cymbalta] PO DAILY 08/20/20 Levothyroxine [Synthroid] 100 mcg PO DAILY 08/20/20 Lisinopril/Hydrochlorothiazide 20 mg PO DAILY 08/20/20 [Lisinopril-Hctz 20-12.5 mg Tab] Zolpidem Tartrate [Ambien] PO QHS 08/20/20 - Social History SMOKING STATUS:: Former smoker Vital Signs Temp Pulse Resp BP Pulse Ox 97.5 F L 54 L 18 129/63 H 96 08/21/20 16:30 08/21/20 16:30 08/21/20 16:30 08/21/20 16:30 08/21/20 16:30 Oxygen Flow Rate (L/min) 1 Oxygen Delivery Method Nasal Cannula Weight: 86.9 kg Body Mass Index (BMI) 35.0 Laboratory Tests Past 24 Hrs 08/21/20 08/21/20 04:46 04:46 WBC 2.5 L RBC 4.24 Hgb 12.8 Hct 37.7 MCV 88.9 MCH 30.2 MCHC 34.0 RDW Std Deviation 38.9 RDW Coeff of Karly 12.0 Plt Count 177 MPV 9.6 Immature Gran % (Auto) 0.000 Neut % (Auto) 46.9 L Lymph % (Auto) 38.8 [place] % (Auto) 13.9 H Eos % (Auto) 0.0 Baso % (Auto) 0.4 Absolute Neuts (auto) 1.2 L Absolute Lymphs (auto) 0.95 Nucleated RBC % 0 Sodium 140 Potassium 3.6 Chloride 109 H Carbon Dioxide 24.0 Anion Gap 7 BUN 13 Creatinine 0.60 Estim Creat Clear Calc 74.92 Est GFR (MDRD) Af Amer 129 Est GFR (MDRD) Non-Af 107 BUN/Creatinine Ratio 21.6 H Glucose 106 Calcium 8.1 L Total Bilirubin 0.40 AST 13 L ALT 17 Alkaline Phosphatase 100 Total Protein 6.2 L Albumin 3.2 Globulin 3.0 Albumin/Globulin Ratio 1.1 - Other Studies Radiology: [] reviewed Other Studies: [] Route of nutrition/ use of supplements: [] Nutritional Intake: [] IV Site: [] Cervantes Catheter: [] - Physical Exam General: Alert, Oriented x3, Cooperative, No apparent distress HEENT: Atraumatic, PERRLA, EOMI Neck: Supple, No Nodes Lungs: Diminished Cardiovascular: Regular rate, Regular Rhythm Abdomen: Soft, Non Tender, Non-Distended Extremities: No edema Skin: No rashes IV Site: Peripheral, without redness Musculoskeletal: No Tenderness to Palpation of Joints or Extremities Neurological: Cranial nerves II-XII grossly intact - Assessment/Plan Antibiotics: [] Assessment/Plan: [] Active and Suspected Problems (Last Reviewed 08/20/20 @ 07:05 by Tashia Vasquez) Hypoxia (Acute) Pneumonia due to COVID-19 virus (Acute) covid with hypoxia - sx started around 08/14. On remdesivir, dex, lovenox 30mg bid. Will change dex to po. Ddimer normal. Plan on 20 days quarantine, 10 days dex. Thank you, will follow
[2020-08-21] MEDS: Acetaminophen 325 MG Tablet 650 MG PO (20:47)
[2020-08-21] MEDS: Zolpidem Tartrate 5 MG Tablet PO (22:30)
[2020-08-21] MEDS: Senna/Docusate Sodium 1 Tablet 2 TABLET PO (22:30)
[2020-08-21 22:56] LABS: Bedside Glucose 111 mg/dL (70-110)
[2020-08-22] VITALS (7 sets, daily range): BP systolic 122–136; BP diastolic 74–80; PULSE 56–70; RESP 14–20; TEMP 36.2–36.6; O2SAT 91–94
[2020-08-22 06:25] LABS: Hematocrit 41.3 % (37-47); Hemoglobin 13.6 g/dL (12.0-15.0); Mean Corp Hgb Conc 32.9 g/dL (32-36); Mean Corpuscular Hgb 29.7 pg (27.0-32.0); Mean Corpuscular Volume 90.2 fL (81-99); Mean Platelet Vol. 9.7 fl (6.2-12.0); Platelet Count 213 K/mm3 (150-450); RBC Distribution Width CV 12.2 % (11.6-14.6); RBC Distribution Width SD 40.2 fl (35.1-43.9); Red Blood Count 4.58 M/mm3 (4.2-5.4); White Blood Count 3.2 K/mm3 (4.4-11.0)
[2020-08-22 06:47] LABS: ALB/GLOB Ratio 1.1 RATIO (0.9-2.4); AST(SGOT) 11 U/L (15-37); Alanine Aminotransfer ALT/SGPT 21 U/L (13-56); Albumin, Serum 3.5 g/dL (3.2-5.0); Alkaline Phosphatase 101 U/L (45-117); Anion Gap 5 (5-15); BUN 14 mg/dL (7-18); BUN/Creat Ratio 19.5 RATIO (10-20); Calcium,Total 8.8 mg/dL (8.5-10.1); Chloride 107 mmol/L (98-107); Creatinine, Serum 0.72 mg/dL (0.55-1.02); EST Glomerular Filtration Rate 87 mL/min (>60); Est Glom Filt Rate - Afr Amer 105 mL/min (>60); Estimated Creatinine Clearance 62.43 ml/min; Globulin 3.1 g/dL (2.2-4.2); Glucose 95 mg/dL (74-106); Potassium 3.5 mmol/L (3.5-5.1); Protein, Total 6.6 g/dL (6.4-8.2); Sodium Level 140 mmol/L (136-145)
[2020-08-22 06:55] LABS: Bedside Glucose 94 mg/dL (70-110)
[2020-08-22] MEDS: Ondansetron 4 MG/2 ML Vial IV (08:50)
[2020-08-22] MEDS: 0.9% Saline Lock 10 ML Syringe IV ×2 (08:50→11:23)
[2020-08-22] MEDS: dexAMETHasone 4 MG Tablet 6 MG PO (08:54)
[2020-08-22] MEDS: Lisinopril 20 MG Tablet PO (08:55)
[2020-08-22] MEDS: Levothyroxine 100 MCG Tablet PO (08:55)
[2020-08-22] MEDS: hydroCHLOROthiazide 12.5mg 12.5 MG PO (08:55)
[2020-08-22] MEDS: Enoxaparin 30 MG/0.3 ML Syringe SC (08:56)
--- NOTE | 2020-08-22 09:54 | PCM.DC ---
- Discharge Diagnoses Current Active Problems: Current Active and Chronic Problems (Last Reviewed 08/20/20 @ 07:05 by Tashia Vasquez) Hypoxia (Acute) Pneumonia due to COVID-19 virus (Acute) Depression (Chronic) Hypothyroidism (Chronic) Hypertension (Chronic) Type 2 diabetes mellitus (Chronic) You will use the following diet at home:: Cardiac Your food should be the consistency of: Regular Discharge Activity: Return to Normal Activity Weight Bearing Status: Weight bearing as tolerated Call your doctor if you observe: Fever of 101 or Higher, Shortness of breath, Dizziness, Fainting spells, Chest pain, Increased palpitations (irregular heartbeat), Uncontrolled pain Instructions: Coronavirus Disease 2019 (COVID-19): Caring for Yourself or Others Additional Instructions: Follow recommendation for COVID-19 quarantine for a total of 20 days from the onset of symptoms which will be until September 04, 2020. Use facemask all the time, wash your hands frequently. Allergies/Adverse Reactions: Allergies codeine Allergy (Unknown, Verified 08/20/20 11:50) makes me real sick Medications to take at Discharge Duloxetine Hcl [Cymbalta] PO DAILY 08/20/20 Levothyroxine [Synthroid] 100 mcg PO DAILY 08/20/20 Lisinopril/Hydrochlorothiazide [Lisinopril-Hctz 20-12.5 mg Tab] 20 mg PO DAILY 08/20/20 Zolpidem Tartrate [Ambien] PO QHS 08/20/20 Dexamethasone [Decadron] 6 mg PO DAILY #7 tab 08/22/20 The following prescriptions were given: Dexamethasone [Decadron] 6 mg PO DAILY #7 tab Transmission Status: Pending to [id number] Primary Care Physician: Kade Baca MD [NON-STAFF] - Please follow up with your Primary Care Physician in: 1-2 WEEKS. Test Results: Test results from this visit will be discussed in further detail at your follow-up appointment, if applicable.
--- NOTE | 2020-08-22 10:23 | PCM.DC.SUM ---
Discharge Date and Diagnosis - Problem List Patient Problems: Active and Suspected Problems (Last Reviewed 08/20/20 @ 07:05 by Tashia Vasquez) Hypoxia (Acute) Pneumonia due to COVID-19 virus (Acute) Date of Admission: 08/20/20 Date of Discharge: 08/22/20 - Primary Discharge Diagnosis Acute Problems: Active Problems (Last Reviewed 08/20/20 @ 07:05 by Tashia Vasquez) #1 acute bilateral COVID-19 pneumonia. #2 hypoxia, resolved. - Secondary Discharge Diagnosis Chronic Problems: Chronic Problems (Last Reviewed 08/20/20 @ 07:05 by Tashia Vasquez) Depression (Chronic) Hypothyroidism (Chronic) Hypertension (Chronic) Type 2 diabetes mellitus (Chronic) Hospital Course and Treatment Imaging Results: Clinical Impression(s) from Imaging Studies Chest X-Ray 08/20/20 08:03 IMPRESSION: Focal left lower lobe infiltrate as well as a faint infiltrate in the peripheral lateral aspect of the right upper lobe adjacent to the right minor fissure. Electronically Signed: Tashi Sousa MD at 8:55 EST , Service support , Dr. Bell, infectious disease. Operations: None Procedures: None Summary of Care Provided: Patient seen and examined on the day of discharge and appeared to be discharged home. She denied any more shortness of breath, has been on room air. She complained of some weakness and fatigue. Her vital signs are stable. The patient is a 65 year old F was referred to emergency department from the urgent care because she tested positive for COVID-19 antigen after she complained of 1 week history of cough, malaise, body aches and shortness of breath, found to have bilateral infiltrates on chest x-ray and she was hypoxic in the ED, admitted for acute bilateral COVID-19 pneumonia and hypoxia. Her routine blood work was remarkable for leukopenia and lymphopenia, otherwise unremarkable. Chest x-ray revealed focal left lower lobe as well as peripheral aspect of the right upper lobe infiltrate. She was treated with IV Decadron and remdesivir as well as subcu Lovenox twice daily. D-dimer and troponin was negative. LFT was unremarkable. Procalcitonin was normal. Infectious disease consulted and agreed with the Decadron and remdesivir. With treatment, patient symptoms improved, remained afebrile. Initially, she required oxygen up to 2 L and with treatment, she was able to come off oxygen and her pulse ox maintained on room air. Patient discharged home in a stable condition, discharged on Decadron 6 mg p.o. daily for 7 days of treatment to complete total of 10 days of treatment, continued on her previous other home medications without any changes, instructed to follow the COVID-19 quarantine requirement for total of 20 days from the onset of symptoms which will be until September 04, 2020, recommended to use facemask all the time and wash hands frequently, recommended follow-up with PCP in 1-2 week. Patient Problems: Active and Suspected Problems (Last Reviewed 08/20/20 @ 07:05 by Tashia Vasquez) Hypoxia (Acute) Pneumonia due to COVID-19 virus (Acute) - Physical Exam Vitals/I&O's: Vital Signs Temp Pulse Resp BP Pulse Ox 97.3 F L 64 20 H 123/74 H 92 08/22/20 08:59 08/22/20 09:00 08/22/20 08:59 08/22/20 08:59 08/22/20 09:00 Oxygen Flow Rate (L/min) 1 Oxygen Delivery Method Room Air Weight: 191 lb 9.307 oz Body Mass Index (BMI) 35.0 Intake and Output for Last 24 Hours 08/20/20 08/21/20 08/22/20 23:59 23:59 23:59 Intake Total 1329.17 / 1329.17 1130 / 1130 240 / 240 Output Total 250 / 250 Balance 1329.17 / 1329.17 880 / 880 240 / 240 General: Alert, Oriented x3, Cooperative, No apparent distress HEENT: Atraumatic, PERRLA, EOMI, Normocephalic Oral: Moist Mucosa, No Gingival or Mucosal Lesions/ Ulcerations Neck: Supple, No JVD, Negative Carotid Bruits, Trachea Midline, Thyroid Normal Size and Texture Lungs: Clear to auscultation, Normal air movement, No rhonchi, No wheeze, No rales, Diminished Cardiovascular: Regular rate, Regular Rhythm, Normal S1, Normal S2, PMI Normal Abdomen: Bowel Sounds Present, Soft, Non Tender, Non-Distended, No Hepato-splenomegaly Extremities: No clubbing, No cyanosis, No edema Skin: No rashes, No breakdown Lymphatic: No Cervical, Supraclavicular, or Inguinal Adenopathy Neurological: Cranial nerves II-XII grossly intact, Neuro grossly intact Psych/Mental Status: Normal Affect, Appropriate Laboratory Results 08/21/20 11:51: POC Glucose 132 H 08/21/20 16:32: POC Glucose 138 H 08/21/20 22:28: POC Glucose 111 H 08/22/20 05:35: WBC 3.2 L, RBC 4.58, Hgb 13.6, Hct 41.3, MCV 90.2, MCH 29.7, MCHC 32.9, RDW Std Deviation 40.2, RDW Coeff of Karly 12.2, Plt Count 213, MPV 9.7 08/22/20 05:35: Sodium 140, Potassium 3.5, Chloride 107, Carbon Dioxide 28.0, Anion Gap 5, BUN 14, Creatinine 0.72, Estim Creat Clear Calc 62.43, Est GFR (MDRD) Af Amer 105, Est GFR (MDRD) Non-Af 87, BUN/Creatinine Ratio 19.5, Glucose 95, Calcium 8.8, Total Bilirubin 0.30, AST 11 L, ALT 21, Alkaline Phosphatase 101, Total Protein 6.6, Albumin 3.5, Globulin 3.1, Albumin/Globulin Ratio 1.1 08/22/20 06:46: POC Glucose 94 Current Medications Acetaminophen (Acetaminophen 325 Mg Tablet) 650 mg PO Q6H PRN PRN PRN Reason: Pain Score 1-10/Temp > 100.7 F Last Admin: 08/21/20 20:47 Dose: 650 mg Documented by: Albuterol Sulfate (Albuterol Sulfate 8 Gm Inhaler (60 Puffs)) 2 puff INHALATION Q4H PRN PRN PRN Reason: Shortness of breath, wheezing. Dexamethasone (Dexamethasone 4 Mg Tablet) 6 mg PO DAILY [facility] Stop: 08/29/20 10:01 Last Admin: 08/22/20 08:54 Dose: 6 mg Documented by: Enoxaparin Sodium (Enoxaparin 30 Mg/0.3 Ml Syringe) 30 mg SC BID [facility] Last Admin: 08/22/20 08:56 Dose: 30 mg Documented by: Hydrochlorothiazide (Hydrochlorothiazide 12.5mg) 12.5 mg PO DAILY [facility] Last Admin: 08/22/20 08:55 Dose: 12.5 mg Documented by: Remdesivir 100 mg/ Sodium (Chloride) 250 mls @ 125 mls/hr IV DAILY [facility] Stop: 08/24/20 11:59 Last Infusion: 08/21/20 13:35 Dose: Infused Documented by: Sodium Chloride () 250 mls @ 15 mls/hr IV .[id number] PRN PRN Reason: Saline Flush Insulin Human Lispro (Insulin Lispro 100 Unit/Ml Insuln.Pen) 0 unit SC ACHS [facility]; Protocol Last Admin: 08/22/20 07:00 Dose: Not Given Documented by: Levothyroxine Sodium (Levothyroxine 100 Mcg Tablet) 100 mcg PO DAILY [facility] Last Admin: 08/22/20 08:55 Dose: 100 mcg Documented by: Lisinopril (Lisinopril 20 Mg Tablet) 20 mg PO DAILY [facility] Last Admin: 08/22/20 08:55 Dose: 20 mg Documented by: Ondansetron HCl (Ondansetron 4 Mg/2 Ml Vial) 4 mg IV Q8H PRN PRN PRN Reason: NAUSEA/VOMITING Last Admin: 08/22/20 08:50 Dose: 4 mg Documented by: Senna/Docusate Sodium (Senna/Docusate Sodium 1 Tablet) 2 tablet PO BID PRN PRN PRN Reason: Constipation Last Admin: 08/21/20 22:30 Dose: 2 tablet Documented by: Sodium Chloride (0.9% Saline Lock 10 Ml Syringe) 10 - 40 ml IV UD PRN PRN Reason: SALINE FLUSH Last Admin: 08/22/20 08:50 Dose: 10 ml Documented by: Zolpidem Tartrate (Zolpidem Tartrate 5 Mg Tablet) 5 mg PO QHS PRN PRN PRN Reason: INSOMNIA Last Admin: 08/21/20 22:30 Dose: 5 mg Documented by: Discharge Activity: Return to Normal Activity Weight Bearing Status: Weight bearing as tolerated Call your doctor if you observe: Fever of 101 or Higher, Shortness of breath, Dizziness, Fainting spells, Chest pain, Increased palpitations (irregular heartbeat), Uncontrolled pain Home Medications: Medications to take at Discharge Duloxetine Hcl [Cymbalta] PO DAILY 08/20/20 Levothyroxine [Synthroid] 100 mcg PO DAILY 08/20/20 Lisinopril/Hydrochlorothiazide [Lisinopril-Hctz 20-12.5 mg Tab] 20 mg PO DAILY 08/20/20 Zolpidem Tartrate [Ambien] PO QHS 08/20/20 Dexamethasone [Decadron] 6 mg PO DAILY #7 tab 08/22/20 Following Prescriptions Were Given to Patient: Dexamethasone [Decadron] 6 mg PO DAILY #7 tab Transmission Status: Received by [facility] Primary Care Physician: Kade Baca MD [NON-STAFF] - Please follow up with your Primary Care Physician in: 1-2 WEEKS. Patient Instructions: Coronavirus Disease 2019 (COVID-19): Caring for Yourself or Others Disposition: Home Minutes spent on discharge:: 28 Patient Condition:: Stable Medical Necessity - Tobacco Use Smoking Status: Former smoker Meaningful Use Info Meaningful Use Diagnoses (Choose all that apply): None applicable Inpatient E&M: 600[address] [facility]
--- NOTE | 2020-08-22 10:30 | CASEMGMT ---
[facility] CM NOTE: Pt being discharged home. PT/OT notes have been reviewed. PT does not recommend additional therapy. OT does. Call placed to pt's room. Pt denies having any discharge planning needs. She denies wanting HHC or therapy. Pt is currently on RA. Pulse ox yesterday w/therapy was 92-97% w/activity on RA. Per Dr Plummer, pt does not need home O2 testing/ambulatory pulse ox prior to discharge. Pt made aware to ask for CM if any discharge needs/questions/concerns arise prior to discharge. Hernandez NYEN RN CM
[2020-08-22 12:00] LABS: Bedside Glucose 106 mg/dL (70-110)
--- NOTE | 2020-08-23 15:38 | CASEMGMT ---
[facility] CM DC CALL DC DATE: 08/22/20 DC Disposition: Home Diagnosis: COVID-19 pneumonia Attempted call to patient''s phone. No answer and no voice messaging with name identifier. Ida DOBBINS RN ACM
== END 2020-08-22 16:50 | disposition home or self-care (01) | DRG 177 ==
LOC: ED 08:54 → MS2 10:10 → ICU 18:02 → MS2 08-21 23:26
PROVIDERS: Internal Medicine Infectious Disease; Admitting Provider Hospitalist; Emergency Provider Emergency Medicine; PCP Internal Medicine; Visit Provider Hospitalist
DX: U07.1 COVID-19 (principal); J12.82 Pneumonia due to coronavirus disease 2019; R09.02 Hypoxemia; E11.9 Type 2 diabetes mellitus without complications; I10 Essential (primary) hypertension; E03.9 Hypothyroidism, unspecified; F32.9 Major depressive disorder, single episode, unspecified; Z79.890 Hormone replacement therapy; Z79.899 Other long term (current) drug therapy; Z87.891 Personal history of nicotine dependence
CPT/HCPCS: 36415; 71045; 80053; 81001; 82550; 82962; 83605; 83880; 84145; 84484; 85025; 85027; 85379; 85610; 93005; 97110; 97161; 97166; 97530; 97535; 99285; J7030; J7050; A4216; J2405